=== PATIENT | female | born 1985 | race Caucasian/White ===

== ENCOUNTER → 2020-05-20 | Outpatient (CLI) | payer OTHER ==
--- NOTE | 2020-05-20 12:56 | REP ---
Clinical: Growth evaluation Comparison: None Findings: Examination demonstrates a single live intrauterine in cephalic presentation. motion is identified by technologist. Bilobed anterior and fundal grade 1 placenta is noted without evidence for placenta previa or abruption. Amniotic fluid volume is normal. Cervix measures 3.3 cm in length and appears closed. No evidence for nuchal cord. Gestational age by LMP 34 weeks 4 days with TR 06/27/2020 . Gestational age by current measurements 35 weeks 3-day with TR 06/21/2020 . FHR equals 132 beats per minute. Estimated weight 2811 grams ( 73rd percentile). Amniotic fluid index: 16.0 cm Biophysical profile score: 8/8 Umbilical cord SD ratio: 2.40 (3.00 - 4.00) Anatomical assessment is limited due to advanced age. No gross abnormalities are identified. Impression: 1. Single live intrauterine in cephalic presentation demonstrating appropriate estimated weight and growth. 2. Biophysical profile score and amniotic fluid volume are normal. 3. Known bilobed placenta again identified. Electronically Signed by Kenneth Clement MD 05/20/2020 12:48 P
== END ==
LOC: M RAD 11:44
PROVIDERS: ATTEND Obstetrics & Gynecology
DX: O43.893 Other placental disorders, third trimester (principal); Z3A.34 34 weeks gestation of pregnancy; O09.523 Supervision of elderly multigravida, third trimester

== ENCOUNTER → 2021-04-01 | Outpatient (REF) | payer OTHER ==
[2021-04-01 18:27] LABS: PERCENT SATURATION 35.2 % (13.2-45.0)
== END ==
LOC: M LAB REF 16:54
PROVIDERS: ATTEND Internal Medicine Nephrology
DX: N18.4 Chronic kidney disease, stage 4 (severe) (principal); D50.9 Iron deficiency anemia, unspecified

== ENCOUNTER → 2021-07-01 | Outpatient (REF) | payer OTHER | LOC: M LAB REF 12:58 | PROVIDERS: ATTEND Internal Medicine Nephrology | DX: N18.4 Chronic kidney disease, stage 4 (severe) (principal); R80.9 Proteinuria, unspecified ==